=== PATIENT | male | born 1955 | race Caucasian/White ===

== ENCOUNTER 2018-04-15 14:27 | Outpatient (CLI) | payer OTHER ==
[2018-04-15] MEDS ORDERED: LISINOPRIL20 MG (15:09)
[2018-04-15] MEDS ORDERED: CARVEDILOL12.5 MG (15:09)
[2018-04-15] MEDS ORDERED: LANTUS SOL100 UNIT/1 (15:10)
== END 2018-04-15 14:40 | disposition home or self-care (01) ==
LOC: LAB 14:27
DX: R97.20 Elevated prostate specific antigen [PSA] (principal)

== ENCOUNTER 2018-04-15 14:54 | Inpatient (IN) | payer OTHER ==
[~2018-04-15] VITALS: Ht 180.3 cm; Wt 119.7 kg
[2018-04-15] MEDS ORDERED: CARVEDILOL12.5 MG (15:09)
[2018-04-15] MEDS ORDERED: LISINOPRIL20 MG (15:09)
[2018-04-15] MEDS ORDERED: LANTUS SOL100 UNIT/1 (15:10)
[2018-05-06] MEDS ORDERED: TRAM1TAB98 PO (13:47)
[2018-05-06] MEDS ORDERED: TAMSULOSIN HCL0.4 MG PO (13:47)
[2018-05-06] MEDS ORDERED: NeurRONTin 400MG CAP PO (13:47)
[2018-05-06] MEDS ORDERED: PYRIDOXINE HCL100 M1 PO (13:47)
[2018-05-06] MEDS ORDERED: BISACODYL5 MG PO (13:47)
[2018-05-06] MEDS ORDERED: ISOSORBIDE MONO30 MG PO (13:47)
[2018-05-06] MEDS ORDERED: AMLODIPINE BESY10 MG PO (13:47)
[2018-05-06] MEDS ORDERED: LOTRISONE CREAM45 GM TOP (13:47)
[2018-05-06] MEDS ORDERED: LISINOPRIL20 MG PO (13:47)
[2018-05-06] MEDS ORDERED: Lantus 1000 UNITS/10 SUBCUTANEO (13:47)
[2018-05-06] MEDS ORDERED: Coreg 12.5MG TABLET PO (13:47)
[2018-05-06] MEDS ORDERED: CARdura 2MG TABLET PO (13:47)
[2018-05-06] MEDS ORDERED: PENTOXIFYLLINE400 MG PO (13:47)
== END 2018-05-06 20:00 | DRG 602 ==
LOC: ER 14:54 → MEDJ 04-16 13:53
PROC: B246ZZZ Ultrasonography of Right and Left Heart (ICD-10-PCS; principal; 2018-04-17)
PROC: 8E0ZXY6 Isolation (ICD-10-PCS; 2018-04-17)
PROC: B54CZZZ Ultrasonography of Left Lower Extremity Veins (ICD-10-PCS; 2018-04-18)
PROC: B246ZZZ Ultrasonography of Right and Left Heart (ICD-10-PCS; 2018-05-02)
DX: L03.114 Cellulitis of left upper limb (principal); A41.02 Sepsis due to Methicillin resistant Staphylococcus aureus; N39.0 Urinary tract infection, site not specified; E86.0 Dehydration; C61 Malignant neoplasm of prostate; I10 Essential (primary) hypertension; E11.65 Type 2 diabetes mellitus with hyperglycemia; E11.42 Type 2 diabetes mellitus with diabetic polyneuropathy; E66.8 Other obesity; M54.5 Low back pain; M79.662 Pain in left lower leg; M79.661 Pain in right lower leg; K59.09 Other constipation; T43.215A Adverse effect of selective serotonin and norepinephrine reuptake inhibitors, initial encounter; K13.0 Diseases of lips; R07.89 Other chest pain; F41.1 Generalized anxiety disorder

== ENCOUNTER 2018-05-18 07:09 | Outpatient (CLI) | payer OTHER ==
[~2018-05-18 07:09] MED LIST: AMLODIPINE BESY10 MG PO; BISACODYL5 MG PO; CARVEDILOL12.5 MG; CARdura 2MG TABLET PO; Coreg 12.5MG TABLET PO; ISOSORBIDE MONO30 MG PO; LANTUS SOL100 UNIT/1; LISINOPRIL20 MG; LISINOPRIL20 MG PO; LOTRISONE CREAM45 GM TOP; Lantus 1000 UNITS/10 SUBCUTANEO; NeurRONTin 400MG CAP PO; PENTOXIFYLLINE400 MG PO; PYRIDOXINE HCL100 M1 PO; TAMSULOSIN HCL0.4 MG PO; TRAM1TAB98 PO
== END 2018-05-18 08:51 | disposition home or self-care (01) ==
LOC: SONOGRAMA 07:09
DX: R97.20 Elevated prostate specific antigen [PSA] (principal)